=== PATIENT | female | born 1940 | race Caucasian/White ===

== ENCOUNTER 2019-07-07 17:03 | Emergency (ER) | payer MEDICARE, OTHER ==
[~2019-07-07] VITALS: Ht 157 cm; Wt 52.2 kg
--- OUTSIDE RECORDS SUMMARY | 2019-07-07 17:09 | XMS REPORT | Continuity of Care Document ---
Author Organization Unknown Address Unknown Phone Unavailable Allergies There is no data. Medications There is no data. Problems There is no data. Procedures There is no data. Results Test Result Range [facility] - 05/31/18 09:13 GLUCOSE 141 mg/dL 65-99 UREA NITROGEN (BUN) 19 mg/dL 7-25 CREATININE 0.91 mg/dL 0.60-0.93 eGFR NON-AFR. CYPRIOT 60 mL/min/1.73m2 > OR = 60 eGFR 70 mL/min/1.73m2 > OR = 60 BUN/CREATININE RATIO NOT APPLICABLE (calc) 6-22 SODIUM 142 mmol/L 135-146 POTASSIUM 4.2 mmol/L 3.5-5.3 CHLORIDE 103 mmol/L 98-110 CARBON DIOXIDE 28 mmol/L 20-32 CALCIUM 10.2 mg/dL 8.6-10.4 PROTEIN, TOTAL 6.8 g/dL 6.1-8.1 ALBUMIN 4.5 g/dL 3.6-5.1 GLOBULIN 2.3 g/dL (calc) 1.9-3.7 ALBUMIN/GLOBULIN RATIO 2.0 (calc) 1.0-2. 5 BILIRUBIN, TOTAL 0.4 mg/dL 0.2-1.2 ALKALINE PHOSPHATASE 41 U/L 33-130 AST 18 U/L 10-35 ALT 13 U/L 6-29 A1C - 05/31/18 09:13 HEMOGLOBIN A1c 6.7 % of total Hgb <5.7 [facility] - 08/24/18 10:11 GLUCOSE 131 mg/dL 65-99 UREA NITROGEN (BUN) 25 mg/dL 7-25 CREATININE 0.93 mg/dL 0.60-0.93 eGFR NON-AFR. CYPRIOT 59 mL/min/1.73m2 > OR = 60 eGFR 68 mL/min/1.73m2 > OR = 60 BUN/CREATININE RATIO NOT APPLICABLE (calc) 6-22 SODIUM 140 mmol/L 135-146 POTASSIUM 4.3 mmol/L 3.5-5.3 CHLORIDE 103 mmol/L 98-110 CARBON DIOXIDE 26 mmol/L 20-32 CALCIUM 9.9 mg/dL 8.6-10.4 PROTEIN, TOTAL 7.0 g/dL 6.1-8.1 ALBUMIN 4.4 g/dL 3.6-5.1 GLOBULIN 2.6 g/dL (calc) 1.9-3.7 ALBUMIN/GLOBULIN RATIO 1.7 (calc) 1.0-2. 5 BILIRUBIN, TOTAL 0.4 mg/dL 0.2-1.2 ALKALINE PHOSPHATASE 50 U/L 33-130 AST 18 U/L 10-35 ALT 13 U/L 6-29 CBC w/MANUAL DIFF - 08/24/18 10:11 WHITE BLOOD CELL COUNT 4.0 Thousand/uL 3 .8-10.8 RED BLOOD CELL COUNT 4.49 Million/uL 3.8 0-5.10 HEMOGLOBIN 12.8 g/dL 11.7-15.5 HEMATOCRIT 39.2 % 35.0-45.0 MCV 87.3 fL 80.0-100.0 MCH 28.5 pg 27.0-33.0 MCHC 32.7 g/dL 32.0-36.0 RDW 14.1 % 11.0-15.0 PLATELET COUNT 290 Thousand/uL 140-400 MPV 10.6 fL 7.5-12.5 ABSOLUTE NEUTROPHILS 2104 cells/uL 1500- 7800 ABSOLUTE MONOCYTES 332 cells/uL 200-950 ABSOLUTE EOSINOPHILS 40 cells/uL 15-500 ABSOLUTE BASOPHILS 40 cells/uL 0-200 NEUTROPHILS 52.6 % NRG LYMPHOCYTES 37.1 % NRG MONOCYTES 8.3 % NRG EOSINOPHILS 1.0 % NRG BASOPHILS 1.0 % NRG ABSOLUTE LYMPHOCYTES 1484 cells/uL 850-3 900 PLATELET ESTIMATION ADEQUATE ADEQUATE COMMENT(S) NRG VITAMIN D, 25-H - 08/24/18 10:11 VITAMIN D,25-OH,TOTAL,IA 45 ng/mL 30-10 0 A1C - 08/24/18 10:11 HEMOGLOBIN A1c 6.7 % of total Hgb <5.7 CULTURE, URINE - 08/28/18 10:00 CULTURE, URINE, ROUTINE SEE NOTE NRG CULTURE, URINE - 09/19/18 11:07 CULTURE, URINE, ROUTINE SEE NOTE NRG CULTURE, URINE - 12/16/18 12:50 CULTURE, URINE, ROUTINE SEE NOTE NRG CULTURE, URINE - 05/22/19 11:03 CULTURE, URINE, ROUTINE SEE NOTE NRG A1C - 06/27/19 09:56 HEMOGLOBIN A1c 5.8 % of total Hgb <5.7 Encounters ACCT No. Visit Date/Time Discharge Status Pt. Type Provider Facility Loc./Unit Complaint [id number] 04/19/2019 15:45:00 04/19/2019 23:59: 59 CLS Outpatient [facility], ALANA Ha [facility] [id number] 06/27/2019 09:20:00 Document Registration [id number] 05/22/2019 10:00:00 Document Registration [id number] 12/16/2018 11:40:00 Document Registration [id number] 09/19/2018 10:20:00 Document Registration [id number] 08/28/2018 09:15:00 Document Registration [id number] 08/24/2018 09:30:00 Document Registration [id number] 05/31/2018 08:00:00 Document Registration
--- OUTSIDE RECORDS SUMMARY | 2019-07-07 17:09 | XMS REPORT ---
Author Author Odilia GONZALES Radha [facility] Address [address] [place] [address] Care Team Providers Care Oracle Technical Developer Name Role Phone ALANA GONZALES Unavailable PROBLEMS Type Condition ICD9-CM Code XAK74-LS Code Onset Dates Condition S tatus SNOMED Code Problem Benign hypertension I10 Aug, Active 21942149 Problem Falls frequently R29.6 Active 279 109549 Problem Generalized weakness R53.1 Feb, Active 01809317 Problem Hypothyroidism (acquired) E03.9 Acti ve 25858744 Problem Insomnia G47.00 Active 689094791 Problem Benign hypertension I10 Aug, Active 76036540 Problem Falls frequently R29.6 Active 279 875888 Problem Left chronic serous otitis media H65.22 Active 190873461 Problem Essential tremor G25.0 Active 609 729894 Problem Hyperlipidemia, mixed E78.2 Active 342510517 Problem 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 Active 133131181 Problem 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.923 Active Problem CVA (cerebral infarction) I63.9 Acti ve 757783227 Problem Dysphagia, post-stroke I69.391 Active Problem Arthritis M19.90 Active 9711368 Problem Vitamin D deficiency E55.9 Aug, Active 02251720 ALLERGIES Substance Reaction Event Type Date Status Codeine Sulfate nausea and vomiting Drug Allergy May, Activ e Baclofen couldn't talk Drug Allergy May, Active ENCOUNTERS Encounter Location Date Diagnosis [facility] [address] [place] [address] Sep, Acute cystitis without hematuria N30.[address] [address] Aug, [address] [address] Aug, Hypothyroidism (acquired) E03.9 ; Type 2 diabetes mellitus with diabetic cataract E11.36 ; Benign hypertension I10 ; Essential tremor G25.0 ; Vitamin D deficiency E55.9 and Dysuria R30.[address] [address] Aug, Type 2 diabetes mellitus with diabetic c ataract E11.36 ; Vitamin D deficiency E55.9 ; Hyperlipidemia, mixed E78.2 ; Benign hypertension I10 and Hypothyroidism (acquired) E03.[address] [address] Aug, Type 2 diabetes mellitus with diabetic c ataract E11.36 ; Vitamin D deficiency E55.9 ; Hyperlipidemia, mixed E78.2 ; Benign hypertension I10 and Hypothyroidism (acquired) E03.[address] [address] Aug, [address] [address] May, Left chronic serous otitis media H65.22 ; Type 2 diabetes mellitus with diabetic cataract E11.36 ; Hypothyroidism (acquired) E03.9 ; Insomnia G47.00 ; Hyperlipidemia, mixed E78.2 ; Benign hypertension I10 ; Vitamin D deficiency E55.9 ; CVA (cerebral infarction) I63.9 ; Fluency disorder following unspecified cerebrovascular disease I69.923 ; Dysphagia, post-stroke I69.391 and Falls frequently R29.[address] [address] May, Type 2 diabetes mellitus with diabetic c ataract E11.36 [place] [address] [address] [facility] [id number] [address] [place] [id number] Feb, [place] [address] [address] [place] [id number] [address] [place] [id number] Feb, [place] [address] [address] [place] [id number] [place] [id number] Jan, [place] [address] [address] [place] [id number] [place] [phone] Aug, IMMUNIZATIONS No Known Immunizations SOCIAL HISTORY Never Assessed REASON FOR VISIT [facility] PLAN OF CARE Activity Details Follow Up 3 Months Reason:lab and fu N IDDM VITAL SIGNS Height 5'3 in 2018-06-02 Weight 117 lbs 2018-06-02 BMI 22.85 kg/m2 2018-06-02 Blood pressure systolic 128 mmHg 2018-06-02 Blood pressure diastolic 76 mmHg 2018-06-02 MEDICATIONS Medication Instructions Dosage Frequency Start Date End Date Duration S tatus Mobic 15 MG Orally Once a day 1 tablet 24h 30 day(s) Active Lisinopril 2.5 MG Orally Once a day 1 tablet 24h 30 day(s) Active Fenofibrate 160 MG Orally Once a day 1 tablet with food 24h 30 day(s) Active Levothyroxine Sodium 125 MCG Orally Once a day 1 tablet on an empty stomach in the morning 24h 30 day(s) Active Aspirin Adult Low Dose 81 MG Orally Once a day 1 tablet 24h 30 day(s) Active OneTouch Verio - as directed Act douglas Metformin HCl 1000 MG Orally 2 times a day 1 tablet with a meal 12h 30 day(s) Active Estradiol 0.5 MG 1 tablet 30 day(s) Acti ve Albuterol Sulfate HFA 108 (90 Base) MCG/ACT Inhalation every 6 hrs 2 puffs as needed 6h Active Amlodipine Besylate 10 MG Orally Once a day 1 tablet 24h 30 day(s) Active Lovastatin 40 MG Orally Once a day 1 tablet with the evening meal 24h 30 day(s) Active Trazodone HCl 50 MG Orally Once a day 1 tablet at bedtime as needed 24 h 30 day(s) Active Hydrochlorothiazide 12.5 MG Orally Once a day 1 capsule in the morning 24h 30 day(s) Active Vitamin D3 2000 UNIT Orally Once a day 1 capsule 24h 30 day(s) Active RESULTS No Results PROCEDURES Procedure Date Ordered Result Body Site Hemoglobin Test Send Out 0 dollar June 02, 2018 [facility] VISIT ESTABLISHED PATIENT June 02, 2018 INSTRUCTIONS MEDICATIONS ADMINISTERED No Known Medications MEDICAL (GENERAL) HISTORY Type Description Date Medical History Hypothyroidism (acquired) Medical History Insomnia Medical History Hyperlipidemia, mixed Medical History Benign hypertension Medical History Type 2 diabetes mellitus with diabetic c ataract Medical History Vitamin D deficiency Medical History CVA (cerebral infarction) Medical History Fluency disorder following unspecified c erebrovascular disease Medical History Dysphagia, post-stroke Medical History Falls frequently Medical History Arthritis Surgical History colonoscopy Surgical History cataract removal Surgical History lasik
[2019-07-07] MEDS ORDERED: LEVO100T7 (17:21)
[2019-07-07] MEDS ORDERED: LOVA40TA2 (17:21)
[2019-07-07] MEDS ORDERED: PRD20T (17:21)
[2019-07-07] MEDS ORDERED: AMLO10TA7 (17:21)
[2019-07-07] MEDS ORDERED: METF-399 (17:21)
[2019-07-07] MEDS ORDERED: HYDR12.56 (17:21)
[2019-07-07] MEDS ORDERED: CELE-63 (17:21)
[2019-07-07] MEDS ORDERED: FENO160T12 (17:21)
[2019-07-07] MEDS ORDERED: LISI2.5T (17:21)
[2019-07-07] MEDS ORDERED: TRZ50T (17:21)
[2019-07-07] MEDS ORDERED: CYCL10TA9 PO (17:29)
--- NOTE | 2019-07-07 17:29 | ED Upper Extremity ---
General Chief Complaint: Upper Extremity Stated Complaint: LT SHOULDER PAIN Nursing Triage Note: c/o L shoulder pain x 1 week. reports acetaminophen is not helping with pain. denies injury Nursing Sepsis Screen: No Definite Risk Source: patient Exam Limitations: no limitations History of Present Illness Date Seen by Provider: Jul 07, 2019 Time Seen by Provider: 17:23 Initial Comments left upper back and shoulder pain for 1 wk. NO injury. Saw PCP a few days ago and given Rx for prednisone, but says it's not helping. Has applied ice 1 time. Pain never goes away, worse w certain movements and she can't get comfortable. Denies CP or soa. Denies abdominal pain or nausea. No recent illness or RF for Covid-19 Allergies and Home Medications Allergies Coded Allergies: codeine (Verified Allergy, Unknown, 07/07/19) Home Medications Cyclobenzaprine HCl 10 Mg Tablet, 5 MG PO q hs PRN for SPASMS Prescribed by: CHHAYA POLLOCK on 07/07/19 0277 Patient Home Medication List Home Medication List Reviewed: Yes Review of Systems Constitutional: no symptoms reported, see HPI; No fever, No malaise, No weakness EENTM: no symptoms reported Respiratory: No cough, No short of breath Cardiovascular: no symptoms reported; No chest pain, No palpitations Gastrointestinal: no symptoms reported Musculoskeletal: see HPI, back pain; No joint swelling; muscle pain, muscle stiffness, muscle cramps; No muscle twitching, No muscle weakness, No neck pain Skin: No change in color, No lesions, No pruritus, No rash Past Qxlhrtp-Xvpqgu-Dvtkpn Hx Past Med/Social Hx: Reviewed Nursing Past Med/Soc Hx Patient Social History Recent Foreign Travel: No Contact w/Someone Who Travel: No Recent Infectious Disease Expo: No Physical Exam Vital Signs Vital Signs - First Documented 07/07/19 17:13 Temp 36.6 Pulse 82 Resp 18 B/P (MAP) 151/73 (99) Pulse Ox 98 Capillary Refill : Less Than 3 Seconds Height, Weight, BMI Height: '" Weight: lbs. oz. kg; 21.00 BMI Method: General Appearance: WD/WN, no apparent distress HEENT: normal ENT inspection Neck: non-tender, full range of motion, supple, normal inspection Cardiovascular: regular rate, rhythm, no edema, no gallop, no JVD, no murmur Respiratory: chest non-tender, lungs clear, normal breath sounds, no respiratory distress, no accessory muscle use Gastrointestinal: non tender, soft Back: normal inspection, no CVA tenderness, no vertebral tenderness, muscle spasm (left upper trapezius ms w point (trigger) tenderness. ) Elbow/Forearm: normal inspection, non-tender Wrist: Yes normal inspection, Yes non-tender Hand: normal inspection, non-tender Neurologic/Tendon: normal sensation, normal motor functions Neurologic/Psychiatric: no motor/sensory deficits, alert, normal mood/affect, oriented x 3 Procedures/Interventions Progress trigger point injection Left trapez ms. injected 2.5 cc into 2 separate trigger points identified w palpation and pt response to pain. pt w mild relief prior to DC Progress/Results/Core Measures Results/Orders My Orders Orders - CHHAYA POLLOCK DO Lidocaine 2% Pf 5 Ml (Xylocaine 2% Pf) (07/07/19 17:30) Medications Given in ED Current Medications Medications Dose Ordered Sig/Kindra Route Start Time Stop Time Status Last Admin Dose Admin Lidocaine HCl 5 ml ONCE ONCE INH 07/07/19 17:30 07/07/19 17:31 DC 07/07/19 17:32 5 ML Vital Signs/I&O 07/07/19 17:13 Temp 36.6 Pulse 82 Resp 18 B/P (MAP) 151/73 (99) Pulse Ox 98 2 Blood Pressure Mean: 99 Departure Impression Primary Impression: Muscle strain Additional Impression: Trigger point of shoulder region Qualified Codes: M25.512 - Pain in left shoulder Disposition: 01 HOME, SELF-CARE Condition: Improved Departure-Patient Inst. Decision time for Depature: 17:28 Referrals: ALANA LUIS MD (PCP/Family) Primary Care Physician Patient Instructions: Muscle Spasms (DC), Muscle Strain (DC) Add. Discharge Instructions: see Dr Luis in 1 week if not improving, ER sooner if worse and unable to see Dr Luis All discharge instructions reviewed with patient and/or family. Voiced understanding. Scripts Cyclobenzaprine HCl (Cyclobenzaprine HCl) 10 Mg Tablet 5 MG PO q hs PRN for SPASMS, #12 TAB 0 Refills Prov: CHHAYA POLLOCK DO 07/07/19 CHHAYA POLLOCK DO Jul 07, 2019 17:29
[2019-07-07] MEDS ORDERED: LIDOCAINE PF 2% 5 ML (XYLOCAINE) VIAL INH ONE (17:30)
[2019-07-07 17:45] VITALS: BP 151/73
== END 2019-07-07 17:45 | disposition home or self-care (01) ==
LOC: ER FS 17:05
DX: S29.012A Strain of muscle and tendon of back wall of thorax, initial encounter (principal); M25.512 Pain in left shoulder; Z88.5 Allergy status to narcotic agent
CPT/HCPCS: 99282

== ENCOUNTER 2020-08-25 17:58 | Emergency (ER) | payer MEDICARE ==
[~2020-08-25] VITALS: Ht 157.4 cm; Wt 53.6 kg
[~2020-08-25 17:58] MED LIST: AMLO-251; CELE-63; CYCL10TA9 PO; FENO160T12; HYDR12.56; LEVO100T7; LISI2.5T; LOVA40TA2; METF-399; PRD20T; TRZ50T
--- NOTE | 2020-08-25 18:03 | ED GI ---
General Stated Complaint: VOMITING | DIZZY | COUGH History of Present Illness Date Seen by Provider: Aug 25, 2020 Time Seen by Provider: 18:03 Initial Comments 80-year-old female presents with vomiting. She reports has been vomiting for 2 days. She is little dizzy. She denies abdominal pain. She denies any cough, fever or chills. Patient provides little other information. Allergies and Home Medications Allergies Coded Allergies: codeine (Verified Allergy, Unknown, 07/07/19) Home Medications Cyclobenzaprine HCl 10 Mg Tablet, 5 MG PO q hs PRN for SPASMS Prescribed by: CHHAYA POLLOCK on 07/07/19 2948 Patient Home Medication List Home Medication List Reviewed: Yes Review of Systems Review of Systems Constitutional: No chills; dizziness; No fever Respiratory: No Symptoms Reported; Denies Cough Cardiovascular: No Symptoms Reported Gastrointestinal: See HPI; Denies Abdominal Pain; Nausea, Vomiting Genitourinary: No Symptoms Reported Musculoskeletal: no symptoms reported Skin: no symptoms reported Psychiatric/Neurological: No Symptoms Reported Endocrine: No Symptoms Reported Past Anrzbqy-Nagkum-Krxhrf Hx Past Med/Social Hx: Reviewed Nursing Past Med/Soc Hx Past Medical History Respiratory: No Cardiac: Yes High Cholesterol, Hypertension Neurological: No Genitourinary: Yes UTI-Chronic Gastrointestinal: No Musculoskeletal: Yes Arthritis Endocrine: Yes Diabetes, Non-Insulin dep HEENT: No Cancer: No Psychosocial: No Psoriasis Blood Disorders: No Physical Exam Vital Signs Vital Signs - First Documented 08/25/20 18:02 Temp 36.2 Pulse 92 Resp 18 B/P (MAP) 192/87 (122) O2 Delivery Room Air Capillary Refill : Height/Weight/BMI Height: '" Weight: lbs. oz. kg; 21.00 BMI Method: General Appearance: mild distress Neck: supple, normal inspection Respiratory: lungs clear, normal breath sounds Cardiovascular: normal peripheral pulses, regular rate, rhythm Gastrointestinal: soft; No rebound, No tenderness Extremities: normal range of motion Neurologic/Psychiatric: alert Skin: other (Patient with a birthmark on the left side of her neck and chest, no acute finding) Focused Exam Lactate Level 08/25/20 18:15: Lactic Acid Level 1.98 Lactic Acid Level Laboratory Tests Test 08/25/20 18:15 Lactic Acid Level 1.98 MMOL/L (0.50-2.00) Progress/Results/Core Measures Results/Orders Lab Results Laboratory Tests Test 08/25/20 18:15 08/25/20 20:00 Range/Units White Blood Count 5.9 4.3-11.0 10^3/uL Red Blood Count 4.76 4.35-5.85 10^6/uL Hemoglobin 13.9 11.5-16.0 G/DL Hematocrit 42 35-52 % Mean Corpuscular Volume 88 80-99 FL Mean Corpuscular Hemoglobin 29 25-34 PG Mean Corpuscular Hemoglobin Concent 33 32-36 G/DL Red Cell Distribution Width 13.5 10.0-14.5 % Platelet Count 290 130-400 10^3/uL Mean Platelet Volume 9.7 7.4-10.4 FL Immature Granulocyte % (Auto) 0 % Neutrophils (%) (Auto) 45 42-75 % Lymphocytes (%) (Auto) 48 H 12-44 % Monocytes (%) (Auto) 5 0-12 % Eosinophils (%) (Auto) 2 0-10 % Basophils (%) (Auto) 1 0-10 % Neutrophils # (Auto) 2.7 1.8-7.8 X 10^3 Lymphocytes # (Auto) 2.8 1.0-4.0 X 10^3 Monocytes # (Auto) 0.3 0.0-1.0 X 10^3 Eosinophils # (Auto) 0.1 0.0-0.3 10^3/uL Basophils # (Auto) 0.1 0.0-0.1 10^3/uL Immature Granulocyte # (Auto) 0.0 0.0-0.1 10^3/uL Sodium Level 141 135-145 MMOL/L Potassium Level 3.7 3.6-5.0 MMOL/L Chloride Level 101 98-107 MMOL/L Carbon Dioxide Level 26 21-32 MMOL/L Anion Gap 14 5-14 MMOL/L Blood Urea Nitrogen 22 H 7-18 MG/DL Creatinine 0.78 0.60-1.30 MG/DL Estimat Glomerular Filtration Rate > 60 BUN/Creatinine Ratio 28 Glucose Level 141 H 70-105 MG/DL Lactic Acid Level 1.98 0.50-2.00 MMOL/L Calcium Level 10.4 H 8.5-10.1 MG/DL Corrected Calcium 8.5-10.1 MG/DL Magnesium Level 1.7 1.6-2.4 MG/DL Total Bilirubin 0.4 0.1-1.0 MG/DL Aspartate Amino Transf (AST/SGOT) 27 5-34 U/L Alanine Aminotransferase (ALT/SGPT) 13 0-55 U/L Alkaline Phosphatase 52 40-136 U/L Total Protein 7.5 6.4-8.2 GM/DL Albumin 4.7 H 3.2-4.5 GM/DL Lipase 48 8-78 U/L Urine Color YELLOW Urine Clarity SL CLOUDY Urine pH 7.5 5-9 Urine Specific [place] 1.020 1.016-1.022 Urine Protein NEGATIVE NEGATIVE Urine Glucose (UA) NEGATIVE NEGATIVE Urine Ketones NEGATIVE NEGATIVE Urine Nitrite NEGATIVE NEGATIVE Urine Bilirubin NEGATIVE NEGATIVE Urine Urobilinogen 0.2 < = 1.0 MG/DL Urine Leukocyte Esterase NEGATIVE NEGATIVE Urine RBC (Auto) NEGATIVE NEGATIVE Urine RBC RARE /HPF Urine WBC 2-5 /HPF Urine Squamous Epithelial Cells 2-5 /HPF Urine Crystals PRESENT H /LPF Urine Amorphous Sediment FEW LATANYA PHOSPHATE H /LPF Urine Bacteria MODERATE H /HPF Urine Casts NONE /LPF Urine Mucus NEGATIVE /LPF Urine Culture Indicated YES My Orders Orders - WOODY,MEGHAN L DO Ondansetron Injection (Zofran Injectio (08/25/20 18:15) Famotidine Tablet (Pepcid Tablet) (08/25/20 18:13) Lactated Ringers (Lr 1000 Ml Iv Solution (08/25/20 18:13) Cbc With Automated Diff (08/25/20 18:13) Comprehensive Metabolic Panel (08/25/20 18:13) Lactic Acid Analyzer (08/25/20 18:13) Lipase (08/25/20 18:13) Magnesium (08/25/20 18:13) Ua Culture If Indicated (08/25/20 18:13) Acute Abd Series (08/25/20 18:14) Famotidine Injection (Pepcid Injection) (08/25/20 18:20) Meclizine Tablet (Antivert Tablet) (08/25/20 20:15) Urine Culture (08/25/20 20:00) Medications Given in ED Current Medications Medications Dose Ordered Sig/Kindra Route Start Time Stop Time Status Last Admin Dose Admin Meclizine HCl 25 mg ONCE ONCE PO 08/25/20 20:15 08/25/20 20:16 DC 08/25/20 20:13 25 MG Ondansetron HCl 4 mg ONCE ONCE IVP 08/25/20 18:15 08/25/20 18:16 DC 08/25/20 18:22 4 MG Vital Signs/I&O 08/25/20 18:02 Temp 36.2 Pulse 92 Resp 18 B/P (MAP) 192/87 (122) O2 Delivery Room Air Progress Progress Note : Progress Note Patient initial presentation she had some vomiting of recent food. No further vomiting after treatment. Patient's labs showed no acute findings. Patient re ports that she still little dizzy when she sits up and moves. I discussed with her if the dizziness for the vomiting came first. She thought that the dizziness may have presented little bit before the vomiting. I discussed with her that she can try some Antivert at home. I will give her Zofran prescription that she can fill tomorrow. Discussed with her that if symptoms continue to worsen she should return to the ER or follow-up with her primary care provider. Patient stable and discharged Diagnostic Imaging Diagonstic Imaging: Xray Plain Films/CT/US/NM/MRI: abdomen Comments [facility] [address] [place], [place] NAME: LESLEY FOX [facility] REC#: [id number] PT STATUS: REG ER : 1940 PHYSICIAN: MEGHAN WOODY DO ADMIT DATE: 08/25/20/ER FS Draft Date of Exam:08/25/20 ACUTE ABD SERIES HISTORY: Nausea and vomiting for 2 days. TECHNIQUE: Frontal view of the chest. Upright and supine frontal views of the abdomen COMPARISON: None FINDINGS: There is mildly increased airspace opacity in the peripheral right midlung. There is no pleural effusion or pneumothorax. There is a nodular density at the left lung base. There appears to be a subtle symmetric density on the right side and this likely represents a nipple shadow. The cardiac silhouette is normal in size. There is aortic atherosclerosis. No free air is seen in the abdomen. There are no distended loops of small bowel. No acute osseous abnormality is seen. IMPRESSION: 1. No free air or distended loops of bowel. 2. Subtle increased opacity in the peripheral right midlung, may be due to infection or chronic scarring. No comparison is available. 3. Nodular density in the left lung base is thought to be due to a nipple shadow. Consider nonemergent follow-up with a 2 view chest x-ray and nipple markers. Reviewed: Reviewed by Me, Reviewed/Discussed Departure Impression Primary Impression: Nausea and vomiting Qualified Codes: R11.2 - Nausea with vomiting, unspecified Additional Impression: Dizziness Disposition: 01 HOME, SELF-CARE Condition: Stable Departure-Patient Inst. Referrals: ALANA GONZALES MD (PCP/Family) Primary Care Physician Patient Instructions: CLEAR LIQUID DIET ADULT/CHILD, Dizziness, Nonvertigo, (DC), Nausea and Vomiting, Adult ED, Vertigo (a Type of Dizziness) (DC) Add. Discharge Instructions: Clear liquid diet, advance as tolerated Meclizine as instructed on package as needed for dizziness Follow-up with your primary care provider and 2 to 3 days or sooner if symptoms are not improved or worsen Scripts Ondansetron (Ondansetron Odt) 4 Mg Tab.rapdis 4 MG PO Q6H PRN for NAUSEA/VOMITING, #20 TAB 0 Refills Prov: MEGHAN WOODY DO 08/25/20 MEGHAN WOODY DO Aug 25, 2020 18:03
[2020-08-25] MEDS ORDERED: LACTATED RINGERS 1,000 ML IV STA (18:13)
[2020-08-25] MEDS ORDERED: FAMOTIDINE 20 MG (PEPCID) TABLET PO STA (18:13)
[2020-08-25] MEDS ORDERED: ONDANSETRON 4 MG/2 ML (SDV) Z0FRAN IVP ONE (18:15)
[2020-08-25] MEDS ORDERED: FAMOTIDINE 20MG/2ML IV (PEPCID) IV STA (18:20)
[2020-08-25 18:24] LABS: HEMATOCRIT 42 % (35-52); HEMOGLOBIN 13.9 G/DL (11.5-16.0); MEAN CORPUSCULAR HEMOGLOBIN 29 PG (25-34); MEAN CORPUSCULAR VOLUME 88 FL (80-99); WHITE BLOOD COUNT 5.9 10^3/uL (4.3-11.0)
[2020-08-25 18:25] LABS: BASOPHILS # (AUTO) 0.1 10^3/uL (0.0-0.1); BASOPHILS % (AUTO) 1 % (0-10); EOSINOPHILS # (AUTO) 0.1 10^3/uL (0.0-0.3); EOSINOPHILS % (AUTO) 2 % (0-10); LYMPHOCYTES # (AUTO) 2.8 X 10^3 (1.0-4.0); LYMPHOCYTES % (AUTO) 48 % (12-44); MEAN CORPUSCULAR HGB CONC 33 G/DL (32-36); MEAN PLATELET VOLUME 9.7 FL (7.4-10.4); MONOCYTES # (AUTO) 0.3 X 10^3 (0.0-1.0); MONOCYTES % (AUTO) 5 % (0-12); NEUTROPHILS # (AUTO) 2.7 X 10^3 (1.8-7.8); NEUTROPHILS % (AUTO) 45 % (42-75); PLATELET COUNT 290 10^3/uL (130-400)
[2020-08-25 18:43] LABS: ALANINE AMINOTRANSFERASE 13 U/L (0-55); ALKALINE PHOSPHATASE 52 U/L (40-136); BILIRUBIN,TOTAL 0.4 MG/DL (0.1-1.0); BUN/CREATININE RATIO 28; CALCIUM 10.4 MG/DL (8.5-10.1); CARBON DIOXIDE 26 MMOL/L (21-32); CHLORIDE 101 MMOL/L (98-107); CREATININE SERUM 0.78 MG/DL (0.60-1.30); GFR ESTIMATED > 60; GLUCOSE 141 MG/DL (70-105); MAGNESIUM 1.7 MG/DL (1.6-2.4); POTASSIUM 3.7 MMOL/L (3.6-5.0); SODIUM 141 MMOL/L (135-145)
[2020-08-25 18:44] LABS: ALBUMIN 4.7 GM/DL (3.2-4.5); LIPASE 48 U/L (8-78); TOTAL PROTEIN 7.5 GM/DL (6.4-8.2)
--- NOTE | 2020-08-25 18:53 | Diagnostic Imaging Report ---
HISTORY: Nausea and vomiting for 2 days. TECHNIQUE: Frontal view of the chest. Upright and supine frontal views of the abdomen COMPARISON: None FINDINGS: There is mildly increased airspace opacity in the peripheral right midlung. There is no pleural effusion or pneumothorax. There is a nodular density at the left lung base. There appears to be a subtle symmetric density on the right side and this likely represents a nipple shadow. The cardiac silhouette is normal in size. There is aortic atherosclerosis. No free air is seen in the abdomen. There are no distended loops of small bowel. No acute osseous abnormality is seen. IMPRESSION: 1. No free air or distended loops of bowel. 2. Subtle increased opacity in the peripheral right midlung, may be due to infection or chronic scarring. No comparison is available. 3. Nodular density in the left lung base is thought to be due to a nipple shadow. Consider nonemergent follow-up with a 2 view chest x-ray and nipple markers. Dictated by: Dictated on workstation # [id number]
[2020-08-25 20:05] LABS: BILIRUBIN,URINE NEGATIVE (NEGATIVE); CLARITY,URINE SL CLOUDY; COLOR,URINE YELLOW; GLUCOSE, URINE (UA) NEGATIVE (NEGATIVE); KETONES,URINE NEGATIVE (NEGATIVE); LEUKOCYTE ESTERASE ,URINE NEGATIVE (NEGATIVE); NITRITE,URINE NEGATIVE (NEGATIVE); PH,URINE 7.5 (5-9); PROTEIN,URINE NEGATIVE (NEGATIVE)
[2020-08-25 20:09] LABS: AMORPHOUS SEDIMENT,UR FEW AMOR PHOSPHATE /LPF; BACTERIA,URINE MODERATE /HPF; RBC,URINE RARE /HPF
[2020-08-25] MEDS ORDERED: MECLIZINE 25 MG (ANTIVERT) TAB PO ONE (20:15)
[2020-08-25] MEDS ORDERED: PROMETHAZINE INJ 25 MG/ML (PHENERGAN) AMP IVP STA (20:20)
[2020-08-25] MEDS ORDERED: ONDA4TAB11 PO (20:24)
[2020-08-25 20:28] VITALS: BP 137/51
== END 2020-08-25 20:28 | disposition home or self-care (01) ==
LOC: EDUNIT# 17:58 → ER FS 17:59
DX: R11.2 Nausea with vomiting, unspecified (principal); R42 Dizziness and giddiness; I10 Essential (primary) hypertension; E11.9 Type 2 diabetes mellitus without complications; Z88.5 Allergy status to narcotic agent
CPT/HCPCS: 36415; 74022; 80053; 81000; 83605; 83690; 83735; 85025; 87088